=== PATIENT | female | born 1995 | race Two or more races ===

== ENCOUNTER 2020-12-09 18:00 | Inpatient (IN) | payer OTHER ==
[~2020-12-09] VITALS: Ht 157.5 cm; Wt 48.1 kg
[2020-12-09] MEDS ORDERED: PRENATABS FA T1 EACH PO (19:27)
== END 2020-12-11 10:29 | disposition left against medical advice (07) | DRG 819 ==
LOC: LDR 18:00 → O/R 12-10 14:47 → LDR 12-11 00:20
PROVIDERS: ADMIT Obstetrics & Gynecology; ATTEND Obstetrics & Gynecology
PROC: 0UVC7ZZ Restriction of Cervix, Via Natural or Artificial Opening (ICD-10-PCS; principal; 2020-12-10 13:30)
DX: O34.32 Maternal care for cervical incompetence, second trimester (principal); Z3A.21 21 weeks gestation of pregnancy; Z20.822 Contact with and (suspected) exposure to COVID-19

== ENCOUNTER 2021-01-02 17:08 | Inpatient (IN) | payer OTHER ==
[~2021-01-02] VITALS: Ht 157.5 cm; Wt 50.8 kg
[~2021-01-02 17:08] MED LIST: PRENATABS FA T1 EACH PO
[2021-01-16] MEDS ORDERED: Procardia Xl 30MG TA PO (07:17)
== END 2021-01-16 14:20 | disposition home or self-care (01) | DRG 833 ==
LOC: LDR 17:08 → OB/GYN 01-04 09:44
PROVIDERS: ADMIT Obstetrics & Gynecology; ATTEND Obstetrics & Gynecology
PROC: 4A1HXFZ Monitoring of Products of Conception, Cardiac Rhythm, External Approach (ICD-10-PCS; principal; 2021-01-02)
PROC: BY4CZZZ Ultrasonography of Second Trimester, Single Fetus (ICD-10-PCS; 2021-01-04)
PROC: BU46ZZZ Ultrasonography of Uterus (ICD-10-PCS; 2021-01-04)
PROC: BU46ZZZ Ultrasonography of Uterus (ICD-10-PCS; 2021-01-09)
DX: O34.32 Maternal care for cervical incompetence, second trimester (principal); O26.872 Cervical shortening, second trimester; Z3A.24 24 weeks gestation of pregnancy; Z20.822 Contact with and (suspected) exposure to COVID-19

== ENCOUNTER 2021-01-21 11:14 | Outpatient (CLI) | payer OTHER ==
[~2021-01-21 11:14] MED LIST changes: +Procardia Xl 30MG TA PO
== END 2021-01-21 12:22 | disposition home or self-care (01) ==
LOC: NST 11:14
PROVIDERS: ATTEND Obstetrics & Gynecology Maternal & Fetal Medicine
DX: O34.32 Maternal care for cervical incompetence, second trimester (principal)

== ENCOUNTER 2021-02-04 10:08 | Outpatient (CLI) | payer OTHER | END 2021-02-04 10:53 | disposition home or self-care (01) | LOC: NST 10:08 | PROVIDERS: ATTEND Obstetrics & Gynecology Maternal & Fetal Medicine | DX: O34.33 Maternal care for cervical incompetence, third trimester (principal) ==

== ENCOUNTER 2021-02-24 10:31 | Outpatient (CLI) | payer OTHER | END 2021-02-24 11:08 | disposition home or self-care (01) | LOC: NST 10:31 | PROVIDERS: ATTEND Obstetrics & Gynecology | DX: Z34.03 Encounter for supervision of normal first pregnancy, third trimester (principal) ==

== ENCOUNTER 2021-03-07 11:43 | Inpatient (IN) | payer OTHER ==
[~2021-03-07] VITALS: Ht 157.5 cm; Wt 53.1 kg
[2021-03-11] MEDS ORDERED: NIFEDIPINE ER60 MG PO (08:22)
== END 2021-03-11 10:42 | disposition home or self-care (01) | DRG 831 ==
LOC: LDR 11:43 → OB/GYN 11:43
PROVIDERS: ADMIT Obstetrics & Gynecology Maternal & Fetal Medicine; ATTEND Obstetrics & Gynecology Maternal & Fetal Medicine
PROC: 4A1HXFZ Monitoring of Products of Conception, Cardiac Rhythm, External Approach (ICD-10-PCS; principal; 2021-03-07)
PROC: BY4FZZZ Ultrasonography of Third Trimester, Single Fetus (ICD-10-PCS; 2021-03-09)
DX: O46.93 Antepartum hemorrhage, unspecified, third trimester (principal); O60.03 Preterm labor without delivery, third trimester; O34.211 Maternal care for low transverse scar from previous cesarean delivery; Z3A.33 33 weeks gestation of pregnancy; Z20.822 Contact with and (suspected) exposure to COVID-19

== ENCOUNTER 2021-03-31 12:00 | Inpatient (IN) | payer OTHER ==
[~2021-03-31] VITALS: Ht 157.5 cm; Wt 2.7 kg
[~2021-03-31 12:00] MED LIST changes: +NIFEDIPINE ER60 MG PO
== END 2021-04-13 15:10 | disposition home or self-care (01) | DRG 783 ==
LOC: LDR 04-10 04:13 → O/R 04-10 11:47 → OB/GYN 04-10 13:16 → SURH 04-15 12:00
PROVIDERS: Obstetrics & Gynecology; ADMIT Obstetrics & Gynecology; ATTEND Obstetrics & Gynecology
PROC: 0UB70ZZ Excision of Bilateral Fallopian Tubes, Open Approach (ICD-10-PCS; 2021-04-10)
PROC: 0UCC0ZZ Extirpation of Matter from Cervix, Open Approach (ICD-10-PCS; 2021-04-10)
PROC: 4A1 Measurement and Monitoring, Physiological Systems, Monitoring (ICD-10-PCS; 2021-04-10)
PROC: 10D00Z1 Extraction of Products of Conception, Low, Open Approach (ICD-10-PCS; principal; 2021-04-10 05:15)
PROC: BT101ZZ Fluoroscopy of Bladder using Low Osmolar Contrast (ICD-10-PCS; 2021-04-13)
DX: O65.5 Obstructed labor due to abnormality of maternal pelvic organs (principal); O34.33 Maternal care for cervical incompetence, third trimester; O34.211 Maternal care for low transverse scar from previous cesarean delivery; O99.892 Other specified diseases and conditions complicating childbirth; N32.89 Other specified disorders of bladder; Z30.2 Encounter for sterilization; Z3A.38 38 weeks gestation of pregnancy; Z37.0 Single live birth; N99.4 Postprocedural pelvic peritoneal adhesions; N73.6 Female pelvic peritoneal adhesions (postinfective)